=== PATIENT | male | born 1980 | race Caucasian/White ===

== ENCOUNTER 2016-08-13 08:39 | Emergency (ER) | payer OTHER ==
[2016-08-13 09:30] LABS: BASOPHIL 0.4 % (0-2); EOSINOPHIL 2.8 % (0-5); HCT 49.2 % (42.0-52.0); HGB 17.1 g/dl (13.2-18.0); LYMPHOCYTE 25.2 % (15-48); MCH 32.6 pg (25.0-31.0); MCHC 34.8 g/dL (32.0-36.0); MCV 93.9 fL (78.0-100.0); MONOCYTE 10.7 % (0-12); MPV 9.6 fL (6.0-9.5); NEUTROPHIL 60.9 % (41-80); PLT 156 K/uL (150-400); RBC 5.24 M/uL (4.70-6.00); RDW 13.8 % (11.5-14.0); WBC 11.3 K/uL (4.0-10.5)
[2016-08-13 09:49] LABS: POTASSIUM 4.1 mmol/L (3.5-5.1)
[2016-08-13 10:27] LABS: BILIRUBIN NEGATIVE (NEGATIVE); BLOOD NEGATIVE Ery/uL (NEGATIVE); CLARITY CLEAR (CLEAR); COLOR YELLOW (YELLOW); GLUCOSE (U) NORMAL (NORMAL); KETONE (U) NEGATIVE (NEGATIVE); LEUKOCYTES NEGATIVE Leu/uL (NEGATIVE); NITRITE NEGATIVE (NEGATIVE); PROTEIN NEGATIVE (NEGATIVE); SPECIFIC GRAVITY 1.015 (1.001-1.030); UROBILINOGEN 0.2 mg/dL (0.2-1.0)
== END 2016-08-13 11:36 | disposition home or self-care (01) ==
LOC: FER 08:39
PROVIDERS: Emergency Medicine
DX: J04.0 Acute laryngitis (principal); J41.1 Mucopurulent chronic bronchitis; G40.909 Epilepsy, unspecified, not intractable, without status epilepticus; F32.9 Major depressive disorder, single episode, unspecified; F17.210 Nicotine dependence, cigarettes, uncomplicated; Z21 Asymptomatic human immunodeficiency virus [HIV] infection status; Z91.040 Latex allergy status; Z79.899 Other long term (current) drug therapy
CPT/HCPCS: 36415; 71020; 80048; 81003; 85025; 87450; 87804; 87899; 99283